=== PATIENT | female | born 1995 | race Native Hawaiian/Other Pacific Islander ===

== ENCOUNTER 2017-06-29 22:18 | Emergency (ER) | payer BC ==
[~2017-06-29] VITALS: Ht 160 cm; Wt 61.2 kg
[2017-06-29 23:26] LABS: PLATELET COUNT 273 K/uL (152-353)
[2017-06-29 23:35] LABS: POTASSIUM 3.4 mmol/L (3.6-5.2); SODIUM 138 mmol/L (136-145)
[2017-06-30 03:26] VITALS: BP 99/57; TEMP 98.2
== END 2017-06-30 03:27 | disposition home or self-care (01) ==
LOC: ED 22:18
DX: K59.00 Constipation, unspecified (principal); N83.201 Unspecified ovarian cyst, right side
CPT/HCPCS: 36415; 80053; 81000; 85027; 96374; 96375; 99284; J1885; J2405; Q9963